=== PATIENT | female | born 1970 | race Caucasian/White ===

== ENCOUNTER 2019-12-15 12:27 | Day surgery (SDC) | payer OTHER ==
[~2019-12-15] VITALS: Ht 167.6 cm; Wt 82.0 kg
[2019-12-15] MEDS ORDERED: LACTATED RINGERS 1,000 ML IV SCH (13:03)
[2019-12-15] MEDS ORDERED: MIDAZOLAM 1 MG/ML, 2ML ONE (13:18)
[2019-12-15] MEDS ORDERED: FENTANYL PF 100 MCG/2ML ONE (13:18)
[2019-12-15] MEDS ORDERED: CHLORHEXIDINE 15 ML UDC MM ONE (13:30)
[2019-12-15] MEDS ORDERED: MISOPROSTOL 200 MCG TABLET ONE (13:31)
[2019-12-15] MEDS ORDERED: SODIUM CHLORIDE 0.9% 100 ML ONE (13:31)
[2019-12-15] MEDS ORDERED: OXYTOCIN 10 UNITS/ML, 1ML ONE (13:31)
[2019-12-15] MEDS ORDERED: METHYLERGONOVINE 0.2 MG/ML IM ONE (13:32)
[2019-12-15] MEDS ORDERED: VASOPRESSIN 20 UNIT/ML, 1ML ONE (13:32)
[2019-12-15 13:33] VITALS: BP 99/69
[2019-12-15] MEDS ORDERED: MONT10TA6 PO (13:33)
[2019-12-15 13:53] LABS: ANION GAP 8 mmol/L (5-15); CALCIUM 8.2 mg/dL (8.5-10.1); CHLORIDE 109 mmol/L (98-107); CREATININE 0.67 mg/dL (0.55-1.02)
[2019-12-15 13:54] LABS: BASOPHILS # (AUTO) 0.02 x10^3/uL (0-0.1); BASOPHILS % (AUTO) 0 % (0-1); EOSINOPHILS # (AUTO) 0.09 x10^3/uL (0-0.4); EOSINOPHILS % (AUTO) 2 % (1-7); LYMPHOCYTES # (AUTO) 1.27 x10^3/uL (1-3.4); LYMPHOCYTES % (AUTO) 22 % (22-44); MD NO; MEAN CORPUSCULAR HEMOGLOBIN 31.2 pg (27.0-34.8); MEAN CORPUSCULAR HGB CONC 34.2 g/dL (32.4-35.8); MEAN CORPUSCULAR VOLUME 91.3 fL (80-100); MEAN PLATELET VOLUME 7.6 fL (7.4-10.4); MONOCYTES # (AUTO) 0.41 x10^3/uL (0.2-0.8); MONOCYTES % (AUTO) 7 % (2-9); NEUTROPHILS # (AUTO) 3.92 x10^3/uL (1.8-6.8); NEUTROPHILS % (AUTO) 69 % (42-75); PLATELET COUNT 205 x10^3/uL (130-400); RED BLOOD COUNT 4.17 x10^6/uL (3.82-5.3); RED CELL DISTRIBUTION WIDTH 13.5 % (9.6-15.2)
[2019-12-15] MEDS ORDERED: KETOROLAC 30 MG/1 ML ONE (14:00)
[2019-12-15] MEDS ORDERED: PROPOFOL 10 MG/ML, 20ML ONE (14:26)
[2019-12-15] MEDS ORDERED: DEXAMETHASONE 4 MG/ML, 1ML ONE (14:26)
[2019-12-15] MEDS ORDERED: LIDOCAINE-MPF 2% ,5ML ONE (14:26)
[2019-12-15] MEDS ORDERED: ONDANSETRON 2MG/ML, 2ML ONE (14:26)
[2019-12-15] MEDS ORDERED: CEFAZOLIN 1,000 MG ONE (14:26)
[2019-12-15] MEDS ORDERED: FENTANYL PF 100 MCG/2ML IV PRN (14:30)
[2019-12-15] MEDS ORDERED: HYDROmorphone 1 MG/ML, 1ML INJ IVPush PRN (14:30)
[2019-12-15] MEDS ORDERED: ALBUTEROL SULFATE 2.5 MG/3 ML NPPB PRN (14:30)
[2019-12-15] MEDS ORDERED: PROMETHAZINE 25 MG/ML, 1ML IVPush PRN (14:30)
[2019-12-15] MEDS ORDERED: MEPERIDINE/PF 25MG/0.5ML IVPush PRN (14:30)
[2019-12-15] MEDS ORDERED: ACETAMINOPHEN 325 MG TABLET PO PRN (14:30)
[2019-12-15] MEDS ORDERED: LABETALOL 5MG/ML, 20ML IV PRN (14:30)
[2019-12-15] MEDS ORDERED: OXYcodone 5 MG/5 ML ORAL.SOL UDC PO PRN (14:30)
[2019-12-15] MEDS ORDERED: hydrALAzine 20 MG/ML, 1ML IV PRN (14:30)
== END 2019-12-15 16:15 | disposition home or self-care (01) ==
LOC: OUT 12:27
PROVIDERS: ATTEND Obstetrics & Gynecology
DX: O02.0 Blighted ovum and nonhydatidiform mole (principal); Z11.59 Encounter for screening for other viral diseases; J45.909 Unspecified asthma, uncomplicated; Z79.82 Long term (current) use of aspirin; Z79.899 Other long term (current) drug therapy; Z86.73 Personal history of transient ischemic attack (TIA), and cerebral infarction without residual deficits; Z90.49 Acquired absence of other specified parts of digestive tract; Z82.49 Family history of ischemic heart disease and other diseases of the circulatory system; Z80.0 Family history of malignant neoplasm of digestive organs
CPT/HCPCS: 36415; 59820; 80048; 85025; 87635; 88305; J1100; J1885; J2250; J2405; J2704; J3010; J7120; J0690; J2210; J2590